=== PATIENT | male | born 1965 | race Caucasian/White ===

== ENCOUNTER 2018-09-11 10:23 | Day surgery (SDC) | payer OTHER ==
[2018-09-10 11:12] VITALS: BMI 22.6
[2018-09-11] MEDS ORDERED: Lidocaine 1% w/Epinephrine 1:100K 30 ML VIAL ONE (11:33)
[2018-09-11] MEDS ORDERED: Oxymetazoline HCl 0.05% ( 15 ML ) ONE ×2 (11:33→11:46)
[2018-09-11] MEDS ORDERED: Midazolam HCl 2 mg/2 ml Vial ONE (11:45)
[2018-09-11] MEDS ORDERED: Fentanyl 100 MCG/2 ML VIAL ONE ×2 (13:19→14:33)
[2018-09-11] MEDS ORDERED: PROPOFOL 200 MG/20 ML VIAL ONE (13:37)
[2018-09-11] MEDS ORDERED: Ondansetron PF 4 MG/2 ML Vial ONE (13:37)
[2018-09-11] MEDS ORDERED: Lidocaine 1% PF 5 ML VIAL ONE (13:37)
[2018-09-11] MEDS ORDERED: Dexamethasone 20 MG/5 ML VIAL ONE (13:37)
[2018-09-11] MEDS ORDERED: Labetalol HCl 100 MG/20 ML VIAL ONE (13:37)
[2018-09-11] MEDS ORDERED: Succinylcholine Chloride 20 MG/ML 10 ml SYRINGE FS ONE (13:37)
--- NOTE | 2018-09-15 12:23 | OP ---
DATE OF PROCEDURE: 09/11/2018 PREOPERATIVE DIAGNOSES: 1. Chronic rhinosinusitis. 2. Nasal septal deviation. 3. Bilateral inferior turbinate hypertrophy. 4. Nasal obstruction. 5. Adenotonsillar hypertrophy. 6. Chronic adenotonsillitis. POSTOPERATIVE DIAGNOSES: 1. Chronic rhinosinusitis. 2. Nasal septal deviation. 3. Bilateral inferior turbinate hypertrophy. 4. Nasal obstruction. 5. Adenotonsillar hypertrophy. 6. Chronic adenotonsillitis. PROCEDURES: 1. Bilateral endoscopic sinus surgery, total ethmoidectomies. 2. Bilateral endoscopic sinus surgery, maxillary antrostomies. 3. Bilateral endoscopic sinus surgery, frontal sinusotomies. 4. Nasal septoplasty. 5. Bilateral inferior turbinate submucosal resection. 6. Tonsillectomy and adenoidectomy. SURGEON: Nuno Lal M.D. ESTIMATED BLOOD LOSS: 50 mL COMPLICATIONS: None. ANESTHESIA: GETA. PROCEDURE IN DETAIL: After consent was obtained, the patient was identified, brought to the operatin g room, and placed on the operating table in the supine position. General endotracheal anesthesia an d intravenous access was obtained and we proceeded with positioning the patient for oropharyngeal shelton margarette. Oropharyngeal exposure was obtained with a Derek-Rene mouth gag after a head drape was placed and secured with a towel clip. The Derek-Rene mouth gag was then suspended from the Maldonado tray and palatal elevation was achieved with a red rubber catheter. The right tonsil was addressed first. We used a curved Allis to grasp the tonsil and retract it medially as an anterior pillar incision was m emory. The retrotonsillar fascial plane was then established and blunt dissection was performed with t he suction cautery. Blood vessels were anticipated, identified, and cauterized as they were encounte red. Ultimately, dissection was carried to the posterior tonsillar pillar mucosa which was incised h emostatically, as well as the base of tongue connection. The tonsil was then passed off as a specime n and bleeding points within the tonsillar bed were cauterized under direct visualization. We subseq uently turned our attention to the contralateral side, where using a similar technique, a near identi matt procedure was performed. Again, the tonsil was grasped and retracted medially with a curved [place] s. The retrotonsillar fascial plane was established and while the anterior pillar was retracted medi ally, the hemostatic blunt dissection of the tonsil with a suction cautery was performed with blood v essels anticipated, identified, and cauterized as they were encountered. Again, dissection continue d to the base of tongue and posterior tonsillar pillar mucosa which was incised in a hemostatic fashi on. The tonsillar beds were then carefully inspected and bleeding points were identified and cauteri zed with a suction cautery. After this portion of the procedure, hemostasis was completely obtained. Under direct mirror visualization, we visualized the adenoid pad. Under direct mirror visualizatio n, we removed the bulk of the adenoid tissue with the adenoid curette. We then packed the nasopharyn x for an appropriate period of time with Jimmie-Synephrine saturated tonsillar sponges. After a period of observation, we removed the pack. Under indirect mirror visualization, we obtained hemostasis and vaporization of residual adenoid tissue with electrocautery. The patient's oral cavity was copiousl y irrigated with iced saline and subsequently suctioned. After completion of the procedure, the nasa l cavity and oropharynx were irrigated and suctioned as were the gastric contents. The patient was t hen awakened and transferred to the recovery room where the patient remained in stable condition prio r to discharge to Day Stay. General endotracheal anesthesia was obtained by the Anesthesia staff. Tube was secured in the left l ower lip. Patient was then placed in the beach chair position, and Afrin pledgets were placed in the nasal cavity. Injections of 1% lidocaine with 1:100,000 epinephrine were made into the nasal septum as well as the inferior turbinates. Patient was then prepped and draped in standard surgical fashio n for nasal surgery. Following this, the Afrin pledgets were removed. A [place] incision was made o n the left nasal septum. Submucoperichondrial dissection was performed. The deviated portions of th e septum included portions of the cartilage and the bony septum. These isolated areas were removed u sing three cutting rongeurs. There was noted to be a large dorsal and caudal strut, left intact for support of the nose. The mucoperichondrial flaps were then reapproximated using a 4-0 gut stitch. A ny straight pieces of cartilage were crushed prior to this and placed between the mucoperichondrial f laps. Following this, the inferior turbinates were then punctured with a submucosal coblation wand, and submucosal coblations were performed of multiple areas of the inferior portion of the anterior in ferior turbinate. Please note that the submucosal microdebrider was used to submucosally resect the anterior and inferi or portions of the inferior turbinates bilaterally. Following this, the 0 degree scope was advanced in the middle meatus. The middle turbinates were gently medialized using a [place] elevator and the 0- degree endoscope. The uncinate process was then identified bilaterally and was anteriorly fractured using the ball-ended probe and upbiting Blakesley forceps. Following this, the uncinate was removed using the straight microdebrider and upbiting Blakesley forceps. Following this, the natural maxilla ry sinus ostia was identified using the ball-ended probe and was gently widened using the curved micr odebrider straight Blakesley forceps bilaterally. Following this, the ethmoidal bulla was identified and was punctured on its medial and inferior aspect bilaterally using the microdebrider and was ekaterina shantal. Following this, the ground lamella was identified and was punctured into the posterior ethmoida l cells. Working from posterior to anterior, the ethmoidal cells were opened in a mucosal-sparing te chnique. Following this, the 45-degree scope and the curved microdebrider blade were used to further open the anterior ethmoidal cells and expose and identify the frontal sinus ostia bilaterally. The frontal sinus ostia were widened using the curved microdebrider bilaterally. Following this, the marilee al cavity was irrigated. MeroPacks were placed. Hinton splints were placed and secured.
--- NOTE | 2018-09-15 22:13 | EKG ---
Test Reason : PREOP Blood Pressure : / mmHG Vent. Rate : 061 BPM Atrial Rate : 061 BPM P-R Int : 130 ms QRS Dur : 092 ms QT Int : 408 ms P-R-T Axes : 074 020 057 degrees QTc Int : 410 ms Sinus rhythm with Premature atrial complexes Otherwise normal ECG No previous ECGs available Confirmed by REYMUNDO WINSTON (2) on 09/15/2018 10:13:06 PM Referred By: MARBELLA Confirmed By:REYMUNDO WINSTON
== END 2018-09-11 16:20 | disposition home or self-care (01) ==
LOC: SDC 10:23
PROVIDERS: ATTEND Otolaryngology Plastic Surgery within the Head & Neck
PROC: 09SM0ZZ Reposition Nasal Septum, Open Approach (ICD-10-PCS; principal; 2018-09-11)
PROC: 0CTPXZZ Resection of Tonsils, External Approach (ICD-10-PCS; principal; 2018-09-11)
PROC: 099T8ZZ Drainage of Left Frontal Sinus, Via Natural or Artificial Opening Endoscopic (ICD-10-PCS; principal; 2018-09-11)
PROC: 099S8ZZ Drainage of Right Frontal Sinus, Via Natural or Artificial Opening Endoscopic (ICD-10-PCS; principal; 2018-09-11)
PROC: 09TU8ZZ Resection of Right Ethmoid Sinus, Via Natural or Artificial Opening Endoscopic (ICD-10-PCS; principal; 2018-09-11)
PROC: 099R8ZZ Drainage of Left Maxillary Sinus, Via Natural or Artificial Opening Endoscopic (ICD-10-PCS; principal; 2018-09-11)
PROC: 0CTQXZZ Resection of Adenoids, External Approach (ICD-10-PCS; principal; 2018-09-11)
PROC: 09TL0ZZ Resection of Nasal Turbinate, Open Approach (ICD-10-PCS; principal; 2018-09-11)
PROC: 099Q8ZZ Drainage of Right Maxillary Sinus, Via Natural or Artificial Opening Endoscopic (ICD-10-PCS; principal; 2018-09-11)
PROC: 09TV8ZZ Resection of Left Ethmoid Sinus, Via Natural or Artificial Opening Endoscopic (ICD-10-PCS; principal; 2018-09-11)
DX: J32.8 Other chronic sinusitis (principal); J35.03 Chronic tonsillitis and adenoiditis; J34.2 Deviated nasal septum; J34.3 Hypertrophy of nasal turbinates; J34.89 Other specified disorders of nose and nasal sinuses; Z79.899 Other long term (current) drug therapy
CPT/HCPCS: 88304; 93005; 93010; 96374; J1100; J2001; J2250; J2405; J2704; J3010